=== PATIENT | female | born 1930 | race Native Hawaiian/Other Pacific Islander ===

== ENCOUNTER 2021-12-07 13:27 | Inpatient (IN) | payer OTHER, MEDICARE ==
[2021-12-11 01:18] LABS: PLATELET COUNT 551 K/uL (152-353)
[2021-12-11] MEDS ORDERED: BUSPIRONE5 MG PO ×2 (12:59)
[2021-12-11] MEDS ORDERED: DONEPEZIL HYDRO10 MG PO ×2 (13:00)
[2021-12-11] MEDS ORDERED: CLINDAMYCIN HY300 MG PO ×2 (13:00)
[2021-12-11] MEDS ORDERED: CALCIUM + D PO ×2 (13:18)
[2021-12-11] MEDS ORDERED: MULTIVITAMI1 PO ×2 (13:19)
[2021-12-11] MEDS ORDERED: MIRALAX17 GM/SCOO PO ×2 (13:19)
[2021-12-11] MEDS ORDERED: PANTOPRAZOLE SO40 M1 PO ×2 (13:20)
[2021-12-11] MEDS ORDERED: REMERON30 MG PO ×2 (13:21)
[2021-12-11] MEDS ORDERED: ZINC220 MG PO ×2 (13:25)
[2021-12-11] MEDS ORDERED: SENNOSIDES8.6 MG PO ×2 (13:25)
[2021-12-11] MEDS ORDERED: [UNRECOGNIZED DRUG - OTHER] PO ×2 (13:26)
[2021-12-11] MEDS ORDERED: FEROSUL325 MG PO ×2 (13:27)
[2021-12-11] MEDS ORDERED: TRAMADOL HYDROC50 MG PO ×2 (13:28)
[2021-12-11] MEDS ORDERED: TYLENOL325 MG PO ×2 (13:28)
== END 2021-12-11 07:41 | disposition still patient (30) ==
LOC: PAVB 13:27
PROVIDERS: ADMIT Internal Medicine; ATTEND Internal Medicine
DX: Z48.815 Encounter for surgical aftercare following surgery on the digestive system (principal); L89.159 Pressure ulcer of sacral region, unspecified stage; R62.7 Adult failure to thrive; Z93.1 Gastrostomy status; R11.2 Nausea with vomiting, unspecified
CPT/HCPCS: 80053; 81000; 85027; 87077; 87081; 87086; 87088; 87185; 87186

== ENCOUNTER 2021-12-10 23:53 | Inpatient (IN) | payer OTHER, MEDICARE ==
[~2021-12-10] VITALS: Ht 170.2 cm; Wt 37.3 kg
[2021-12-11] VITALS (7 sets, daily range): BP systolic 72–138; BP diastolic 36–110; TEMP 97–98.5; Ht 170.2 cm; Wt 37.3 kg
[2021-12-11] MEDS ORDERED: BUSPIRONE5 MG PO ×2 (12:59)
[2021-12-11] MEDS ORDERED: DONEPEZIL HYDRO10 MG PO ×2 (13:00)
[2021-12-11] MEDS ORDERED: CLINDAMYCIN HY300 MG PO ×2 (13:00)
[2021-12-11] MEDS ORDERED: CALCIUM + D PO ×2 (13:18)
[2021-12-11] MEDS ORDERED: MULTIVITAMI1 PO ×2 (13:19)
[2021-12-11] MEDS ORDERED: MIRALAX17 GM/SCOO PO ×2 (13:19)
[2021-12-11] MEDS ORDERED: PANTOPRAZOLE SO40 M1 PO ×2 (13:20)
[2021-12-11] MEDS ORDERED: REMERON30 MG PO ×2 (13:21)
[2021-12-11] MEDS ORDERED: SENNOSIDES8.6 MG PO ×2 (13:25)
[2021-12-11] MEDS ORDERED: ZINC220 MG PO ×2 (13:25)
[2021-12-11] MEDS ORDERED: [UNRECOGNIZED DRUG - OTHER] PO ×2 (13:26)
[2021-12-11] MEDS ORDERED: FEROSUL325 MG PO ×2 (13:27)
[2021-12-11] MEDS ORDERED: TYLENOL325 MG PO ×2 (13:28)
[2021-12-11] MEDS ORDERED: TRAMADOL HYDROC50 MG PO ×2 (13:28)
[2021-12-12] VITALS (15 sets, daily range): BP systolic 75–116; BP diastolic 35–61; TEMP 96.7–98.9
[2021-12-12 08:22] LABS: PLATELET COUNT 432 K/uL (152-353)
[2021-12-12 08:29] LABS: POTASSIUM 5.1 mmol/L (3.6-5.2)
[2021-12-13] VITALS: BP 106/46; TEMP 98.2
[2021-12-13 04:00] VITALS: BP 96/41; TEMP 98.3
[2021-12-13 05:32] LABS: PLATELET COUNT 397 K/uL (152-353)
[2021-12-13 05:35] LABS: POTASSIUM 5.4 mmol/L (3.6-5.2)
[2021-12-13 07:41] VITALS: BP 108/57; TEMP 98.9
[2021-12-13 11:37] VITALS: BP 98/44; TEMP 98.4
[2021-12-13 20:00] VITALS: BP 103/53; TEMP 98.5
[2021-12-14] VITALS: TEMP 97.9
[2021-12-14 05:41] LABS: PLATELET COUNT 447 K/uL (152-353)
[2021-12-14 05:58] LABS: POTASSIUM 5.8 mmol/L (3.6-5.2)
[2021-12-14 08:00] VITALS: BP 131/54; TEMP 98.2
[2021-12-14 12:00] VITALS: BP 106/81; TEMP 98.3
[2021-12-14 16:00] VITALS: BP 109/72; TEMP 97.9
[2021-12-14 19:40] VITALS: BP 134/51; TEMP 98.7
[2021-12-15] VITALS: BP 140/89; TEMP 97.8
[2021-12-15 03:38] VITALS: BP 174/65; TEMP 98.8
[2021-12-15 05:20] LABS: PLATELET COUNT 490 K/uL (152-353)
[2021-12-15 05:43] LABS: POTASSIUM 6.2 mmol/L (3.6-5.2)
[2021-12-15 08:00] VITALS: BP 144/88; TEMP 98.2
[2021-12-15 12:00] VITALS: BP 149/79; TEMP 98.4
[2021-12-15 20:00] VITALS: BP 158/80; TEMP 99.3
[2021-12-16] VITALS: BP 154/58; TEMP 99
[2021-12-16 04:00] VITALS: BP 133/79; TEMP 99.5
[2021-12-16 04:47] LABS: PLATELET COUNT 442 K/uL (152-353)
[2021-12-16 04:55] LABS: POTASSIUM 6.3 mmol/L (3.6-5.2)
[2021-12-16 07:48] VITALS: BP 126/77; TEMP 97.5
[2021-12-16 11:06] VITALS: BP 127/69; TEMP 98.2
[2021-12-16] MEDS ORDERED: CEFT1INJ4 IV ×2 (13:24)
== END 2021-12-16 16:05 | DRG 871 ==
LOC: LAB 23:53 → MED/SURG 12-11 10:59
PROVIDERS: ADMIT Internal Medicine; ATTEND Internal Medicine
PROC: 30233N1 Transfusion of Nonautologous Red Blood Cells into Peripheral Vein, Percutaneous Approach (ICD-10-PCS; principal; 2021-12-11)
PROC: 30233N1 Transfusion of Nonautologous Red Blood Cells into Peripheral Vein, Percutaneous Approach (ICD-10-PCS; 2021-12-12)
DX: A41.89 Other specified sepsis (principal); L89.814 Pressure ulcer of head, stage 4; L89.154 Pressure ulcer of sacral region, stage 4; N39.0 Urinary tract infection, site not specified; E87.1 Hypo-osmolality and hyponatremia; I95.89 Other hypotension; K21.9 Gastro-esophageal reflux disease without esophagitis; J44.9 Chronic obstructive pulmonary disease, unspecified; F03.90 Unspecified dementia, unspecified severity, without behavioral disturbance, psychotic disturbance, mood disturbance, and anxiety; D50.8 Other iron deficiency anemias; M15.8 Other polyosteoarthritis; E87.5 Hyperkalemia; Z90.3 Acquired absence of stomach [part of]; R13.19 Other dysphagia; B95.2 Enterococcus as the cause of diseases classified elsewhere; L89.611 Pressure ulcer of right heel, stage 1
CPT/HCPCS: 36415; 80048; 80202; 82272; 82607; 82728; 83540; 83605; 85027; 86850; 86870; 86900; 86901; 86902; 86922; 87040; 87635; J1940; J2060; J2916; J3370; P9016; U0003